=== PATIENT | male | born 1965 | race Caucasian/White ===

== ENCOUNTER 2023-09-24 22:44 | Outpatient (CLI) | payer OTHER, SELFPAY ==
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
--- OUTSIDE RECORDS SUMMARY | 2023-09-28 16:06 | XMS_ITS | Encounter Summary ---
Author Name Unknown Organization [facility] Address [address] [place] [address] Phone Care Team Providers Care Impersonator Character Name Role Phone Unavailable Primary Care Provider Unavailabl e Encounter Details Date Type Department Care Team (Late st Contact Info) Description 09/25/2023 Orders Only Unspecified Department [place] Unknown, Provider Social History Tobacco Use Types Packs/Day Years [...] is your housing situation today? 5 - Patien t unable to answer 09/25/2023 Sex and Gender Information Value Date Recorded Sex Assigned at Not on file Gender Identity Not on file Sexual Orientation Not on file documented as of this encounter Plan of Treatment Not on file documented as of this encounter Procedures Procedure Name Priority Date/Time Associated Diagnosis Comments TELEMETRY STRIPS 09/25/2023 9:38 PM LINE DEPARTMENT SUPERVISOR documented in this encounter Results * TELEMETRY STRIPS (09/25/2023 9:38 PM LINE DEPARTMENT SUPERVISOR) Narrative 09/25/2023 9:38 PM LINE DEPARTMENT SUPERVISOR Ordered by an unspecified provider. Provider Unknown RAD ECHO documented in this encounter Visit Diagnoses Not on filedocumented in this encounter
--- OUTSIDE RECORDS SUMMARY | 2023-09-28 16:06 | XMS_ITS | Encounter Summary ---
Author Name Unknown Organization [facility] Address [address] [place] [address] Phone Care Team Providers Care Die Repair Machinist Name Role Phone Unavailable Primary Care Provider Unavailabl e Encounter Details Date Type Department Care Team (Latest Contact Info) Description 09/25/2023 12:56 AM GEOTECHNICAL INTERN - 09/25/2023 11:59 PM GEOTECHNICAL INTERN Hospital Encounter Legal Evidence Collection Nagi Tyler MD [address] [facility] [address] [place] [address] Discharge Disposition: Discharged to home or self care (routine discharge) Social History Tobacco Use Types Packs/Day Years [...] on file documented as of this encounter Visit Diagnoses Not on filedocumented in this encounter
--- OUTSIDE RECORDS SUMMARY | 2023-09-28 16:06 | XMS_ITS | Referral Summary ---
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 RELIGIOUS EDUCATOR ED Trauma eFAST Ultrasound Indications: Suspicion of [...] Advance Directives For more information, please contact: [phone] Latest Code Status on File Code Status Date Activated Date Inactivated Comments Full Code 09/25/2023 3:32 AM 09/26/2023 2:10 PM Question Answer Comments Does the Patient have prefer ences regarding life sustaining measures (these options only apply when the patient has a pulse): No Discussed Code Status With Whom? Not discussed
--- OUTSIDE RECORDS SUMMARY | 2023-09-28 16:06 | XMS_ITS | Encounter Summary ---
Author Name Unknown Organization [facility] Address [address] [place] [address] Phone Care Team Providers Care Jewel Staker Name Role Phone Unavailable Primary Care Provider Unavailabl e Encounter Details Date Type Department Care Team (Late st Contact Info) Description 09/26/2023 Orders Only Unspecified Department [place] [...] Date/Time Associated Diagnosis Comments TELEMETRY STRIPS 09/26/2023 2:29 AM CLOTH DYEING RANGE TENDER documented in this encounter Results * TELEMETRY STRIPS (09/26/2023 2:29 AM CLOTH DYEING RANGE TENDER) Narrative 09/26/2023 2:29 AM CLOTH DYEING RANGE TENDER Ordered by an unspecified provider. Provider Unknown RAD ECHO documented in this encounter Visit Diagnoses Not on filedocumented in this encounter
--- OUTSIDE RECORDS SUMMARY | 2023-09-28 16:06 | XMS_ITS | Encounter Summary ---
Author Name Unknown Organization [facility] Address [address] [place] [address] Phone Care Team Providers Care Fan Blade Aligner Name Role Phone Unavailable Primary Care Provider Unavailabl e Encounter Details Date Type Department Care Team (Latest Contact Info) Description 09/25/2023 Travel Social History Tobacco Use Types Packs/Day Years [...]
--- OUTSIDE RECORDS SUMMARY | 2023-09-28 16:06 | XMS_ITS | Encounter Summary ---
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 - Provider: Samira Nabagereka, RN - Reason: Other (must enter a comment) - Comment: pt declined/changed his mind) propofol (DIPRIVAN) 10 mg/mL BOLUS from infusion 50 mg (CANCELED)(Linked Group 3) 50 mg (0.5 mg/kg ? 100 kg Order-specific weight), Intravenous, BOLUS FROM INFUSION, Starting on Sun09/25/23 at 0338, Until Sun09/25/23 at 0846, Other (specify), q10min PRN Life threatening agitation 0741 (Bolus from Infusion - Provider: Martita Kim RN)0820 (Bolus from Infusion - Provider: Martita Kim RN)0830 (Bolus from Infusion - Provider: Mee Gagnon, KURTIS) sennosides-docusate sodium (STOOL SOFTENER/LAXATIVE) 8.6-50 mg tablet 1 tablet 1 tablet, Oral, BID PRN, Starting on Sun09/25/23 at 0854, Until Sun09/26/23 at 1410, Constipation (Use First) Linked Groups Order Group 1: DC MED REC REVIEW BY PHARMACYJump to med Discharge Date: 09/26/2023, Discharge Location: Home, Anticipated Discharge Time: Before 10 am, Discharge Medication Orders: DC Med Orders Final, Does not apply, PROTOCOL, Starting on Sun09/26/23 at 0852, Until Sun09/26/23 at 1410 And Discharge Med Rec Final Review by Pharmacy (COMPLETED) Routine, Order to be placed by provider after medications have been entered for discharge and are ready for review by Pharmacist. This order can be placed multiple times if changes or additions have been made to medications for discharge. Choose the Preliminary DC Med Rec review when placing orders prior to the day of discharge. Choose Final DC Med Rec when all medication changes have been entered. If DC Med Rec needed now, please page the Pharmacist covering the patient to inform them., Discharge Date: 09/26/2023, Discharge Location: Home, Anticipated Discharge Time: Before 10 am Group 2: propofol 10 mg/mL Infusion (CANCELED)Jump to med Start infusion at (mcg/kg/min): 5, Titration? Titrate to Goal RASS, CONTINUOUS, Starting on Sun09/25/23 at 0335, Until Sun09/25/23 at 0339, Intravenous And propofol (DIPRIVAN) 10 mg/mL BOLUS from infusion 50 mg (CANCELED) 50 mg (0.5 mg/kg ? 100 kg Order-specific weight), Intravenous, BOLUS FROM INFUSION, Starting on Sun09/25/23 at 0331, Until Sun09/25/23 at 0339, Other (specify), q10min PRN Life threatening agitation And ICU TRIGYCERIDE (CANCELED) STAT, Unit Collect, Q72H, First occurrence on Leeann 09/27/23 at 0600, Until Specified And ICU CK, TOTAL (CANCELED) STAT, Unit Collect, Q72H, First occurrence on Leeann 09/27/23 at 0600, Until Specified Group 3: propofol 10 mg/mL Infusion (CANCELED)Jump to med Start infusion at (mcg/kg/min): 5, Titration? Titrate to Goal RASS, CONTINUOUS, Starting on Sun09/25/23 at 0340, Until Sun09/25/23 at 0846, Intravenous And propofol (DIPRIVAN) 10 mg/mL BOLUS from infusion 50 mg (CANCELED)Jump to med 50 mg (0.5 mg/kg ? 100 kg Order-specific weight), Intravenous, BOLUS FROM INFUSION, Starting on Sun09/25/23 at 0338, Until Sun09/25/23 at 0846, Other (specify), q10min PRN Life threatening agitation And ICU TRIGYCERIDE (CANCELED) Routine, Lab Collect, Q72H, First occurrence on Leeann 09/27/23 at 0600, Until Specified And ICU CK, TOTAL (CANCELED) Routine, Lab Collect, Q72H, First occurrence on Eleann 09/27/23 at 0600, Until Specified documented in this encounter
--- OUTSIDE RECORDS SUMMARY | 2023-09-28 16:06 | XMS_ITS | Encounter Summary ---
Author Name Unknown Organization [facility] Address [address] [place] [address] Phone Care Team Providers Care Rn Diabetes Educator Name Role Phone Unavailable Primary Care Provider [...] Diagnosis Comments TELEMETRY STRIPS 09/26/2023 8:06 AM HAM FACER documented in this encounter Results * TELEMETRY STRIPS (09/26/2023 8:06 AM HAM FACER) Narrative 09/26/2023 8:06 AM HAM FACER Ordered by an unspecified provider. Provider Unknown RAD ECHO documented in this encounter Visit Diagnoses Not on filedocumented in this encounter
--- OUTSIDE RECORDS SUMMARY | 2023-09-28 16:06 | XMS_ITS | Clinical Summary ---
Author Name Unknown Organization [facility] Address [place], [place] [address] Care Team Providers Care Satellite Tv Technician Installer Name Role Phone Clinic, No Pcp Or Primary Care Provider Unavaila ble Allergies No known active allergies Medications Medication Sig Dispensed Refills Start Date End Date Status EPIPEN 0.3 MG/0.3 ML (1:1,000) IM INJECTORIndication s:Allergy to insects and arachnids inject 0.3 mg by intramuscular route once as needed for anaphylaxis 1 5 05/22/2007 Active tobramycin-dexamet hasone (TOBRADEX) ophthalmic solution Place 1 Drop into left eye 4 times daily. 1 Bottle 0 03/07/2012 Active oxyCODONE-acetamin ophen, 5-325 mg, (PERCOCET) per tablet Take 1 tablet by mouth every 4 hours if needed for Pain. Max acetaminophen dose: 4000mg in 24 hrs. 20 tablet 0 03/04/2014 Active rx oxyCODONE-acetamin ophen, 5-325 mg, (PERCOCET 5-325) tablet (ED DC MED) Take 1 tablet by mouth every 4 hours if needed. 4 tablet 0 03/04/2014 Active Immunizations Name Administration Dates Next Due DTaP 07/04/2009 Family History Medical History Relation Name Comments Diabetes Father had many compli caions,and of a PE Relation Name Status Comments Father Social History Tobacco Use Types Packs/Day Years Used Date Smoking Tobacco: Never Smokeless Tobacco: Never Alcohol Use Standard Drinks/Week Comments Yes 0 (1 standard drink = 0.6 oz pur e alcohol) minimal Social Connections Answer Date Recorded Frequency of Communication with Friends and Fami ly Not on file 08/20/2021 Financial Resource Strain Answer Date R ecorded Difficulty of Paying Living Expenses Not on file 08/20/2021 Difficulty of Paying Living Expenses Not on file 08/20/2021 Sex and Gender Information Value Date Recorded Sex Assigned at Not on file Gender Identity Not on file Sexual Orientation Not on file Obstetrics History Last Filed Vital Signs Vital Sign Reading Time Taken Comments Blood Pressure 144/99 12/16/2022 11:39 AM CDT Pulse 64 12/16/2022 11:39 AM CDT Temperature 36.4 ??C (97.6 ??F) 12/16/2022 11:39 AM C DT Respiratory Rate 20 12/16/2022 11:39 AM CDT Oxygen Saturation 97% 12/16/2022 11:39 AM CDT Inhaled Oxygen Concentration - - Weight 131.5 kg (290 lb) 12/16/2022 11:39 AM CDT Height 172.7 cm (5' 8) 12/16/2022 11:39 AM CDT Body Mass Index 44.09 12/16/2022 11:39 AM CDT Plan of Treatment Health Maintenance Due Date Last Done Comments COVID-19 vaccine series (#1) 1965 Tdap 01/04/1976 Depression screening for age 12+ 1977 HIV for age 15-65 01/04/1980 BMI (ht and wt on same day) for age 18+ 1983 Hepatitis C screening for ag e 18-79 1983 Colonoscopy through age 75 2010 Lipids for age 45-75 05/22/2012 05/22/2007 Zoster (shingles) series for age 50+ (1 of 2) 2015 Tetanus booster 07/12/2019 07/12/2009 Influenza for age 50-64 04/20/2023 Pneumococcal series for age 6-64 Aged Out No longer eligible based on patient's age to complete this topic Care Teams Satellite Tv Technician Installer Relationship Specialty Start Date End Date Clinic, No Pcp Or . PCP - General 09/30/19
== END 2023-09-24 22:45 | disposition home or self-care (01) ==
PROVIDERS: Visit Provider Emergency Medicine Emergency Medical Services
DX: S09.90XA Unspecified injury of head, initial encounter (principal); V47.0XXA Car driver injured in collision with fixed or stationary object in nontraffic accident, initial encounter; Y92.410 Unspecified street and highway as the place of occurrence of the external cause
CPT/HCPCS: A0425; A0427